=== PATIENT | female | born 1950 | race American Indian/Alaskan Native ===

== ENCOUNTER 2018-07-13 09:36 | Outpatient (CLI) | payer MEDICARE | END 2018-07-13 09:37 | disposition home or self-care (01) | LOC: ECHO 09:36 | DX: I34.0 Nonrheumatic mitral (valve) insufficiency (principal); I07.1 Rheumatic tricuspid insufficiency; I27.20 Pulmonary hypertension, unspecified | CPT/HCPCS: 93306 ==